=== PATIENT | male | born 2005 | race Two or more races ===

== ENCOUNTER 2024-08-23 03:50 | Observation (INO) ==
[2024-08-23] MEDS ORDERED: HYDROmorphone INJ 0.5 MG/0.5 ML SYR IV PRN ×2 (04:24)
--- NOTE | 2024-08-23 04:32 | History & Physical Report ---
Date of Service August 23, 2024 Assessment & Plan (1) Acute appendicitis: Plan: Patient was transferred from [facility] with concerns of acute appendicitis. He was seen and evaluated early this morning at bedside and does have clinical exam findings consistent with appendicitis. Treatment options were discussed with the patient and at this time he is agreeable to undergo surgical intervention. Patient's case was discussed with attending surgeon, Dr. Ballesteros. Patient tentatively planned for laparoscopic appendectomy later today. For now recommend the following: - Keep n.p.o., IV fluid hydration, pain medication and antiemetics as needed - Preoperative antibiotics ordered - Discussed with both the patient, and his parents who are at bedside, postoperative instructions. -Plan for possible discharge post-operatively later today as above. discussed risks/options ( bleeding/infection/blood clots/injury to another organ etc....). also spoke to his mom. questions answered. will proceed today with lap appendectomy. Admission and Anticipated Discharge Date Admission Date: August 23, 2024 History of Present Illness Chief Complaint: Abdominal pain Primary Care Provider: NO PCP Patient is a 18-year-old male presented to outside facility late last evening due to complaints of acute onset of abdominal pain. Patient states that he was feeling his normal self, however around 7 PM last evening he started with lower abdominal pain with associated nausea, vomiting, and a low-grade fever. Patient states that his pain started in his mid abdomen and has now migrated over to his right lower quadrant. The patient was worked up at the outside hospital and was found to have a leukocytosis of [address] findings concerning for acute appendicitis. Patient's case was discussed with attending surgeon, Dr. Ballesteros, and the patient was transferred to our facility and was admitted to the surgical service. The patient was seen and evaluated early this morning at bedside. He is resting comfortably in bed, vital signs stable, and is nontoxic-appearing. The patient is accompanied by his parents who are also at bedside. Patient's mother does note he had an inguinal hernia repaired as a infant, but otherwise has never had any additional abdominal surgeries. Patient does take a PPI for GERD and admits to occasionally smoking marijuana, otherwise he denies any other medical issues. Allergies Allergy/AdvReac Type Severity Reaction Status Date / Time codeine Allergy Rash Verified 08/23/24 04:53 Penicillins Allergy Rash Verified 08/23/24 04:53 Home Medications Medication Instructions Recorded Confirmed Type omeprazole 20 mg capsule,delayed 20 mg PO DAILY 08/23/24 08/23/24 History release Past Med/Surg History Problem List Acute appendicitis Social History Smoking Status: Never smoker Hx Alcohol Use: Yes Alcohol type: beer Hx Substance Use: Yes Last Used Substance: Days (ago) Preferred Language: Estonian Communication Ability: Effective Director Operations Required: No Beliefs That Will Affect Care: None Current Living Situation: Alone Other Information That Helps Us Care for You: No Feels Safe at Home: Yes Safety Concerns: Feels Safe At This Time Assistive Devices: Glasses Review of Systems Constitutional: + fever; no chills, no body aches and no weakness Respiratory: no cough, no chest congestion and no dyspnea Cardiovascular: no chest pain, no palpitations and no syncope Gastrointestinal: + abdominal pain, + nausea and + vomitin g Genitourinary: no dysuria, no difficulty urinating or no flank pain Physical Exam Constitutional: WD/WN, vitals as above Respiratory: normal respiratory effort, lungs clear to auscultation Cardiovascular: RRR, no murmur, no edema Gastrointestinal (Abdomen): Abdomen soft, nondistended, +TTP in the RLQ with +McBurney's No rebound, guarding or signs of peritonitis Skin: no rashes, warm and dry Psychiatric: A+Ox3, euthymic affect Results & Data Results & Data Diagnostic Findings CT imaging from [facility] with concerns of acute appendicitis Code Status & VTE Plan VTE Prophylaxis Plan VTE Prophylaxis will be ordered: Yes PG Care Time/CCT Total # of Minutes Spent Total Time Spent with Patient: Total time spent is greater than 50% in coordination of care (as documented) at patient's floor/unit and/or counseling patient: [place] [address] INT INP/OBS CARE 1/40MIN Patient Type New Medical Decision Making Straight Forward Diagnoses Acute appendicitis K35.80
[2024-08-23] MEDS: SODIUM CHLORIDE 0.9% 1,000 ML IV SCH (05:06)
[2024-08-23] MEDS: KETOROLAC TROMETHAMINE 15 MG/ML VIAL IV PRN (05:08)
[2024-08-23] MEDS: ACETAMINOPHEN 1,000 MG/100 ML VIAL IV SCH (05:08)
[2024-08-23] MEDS: metroNIDAZOLE 500 MG/100 ML BAG IV SCH (05:14)
[2024-08-23] MEDS: CIPROFLOXACIN / D5W 400 MG/200 ML BAG IV SCH (06:19)
[2024-08-23 06:41] LABS: Hematocrit (blood only) 39.4 % (42.0-52.0); Hemoglobin 13.8 g/dl (14.0-18.0); Immature Granulocytes # (auto) 0.04 K/uL (0.01-0.20); Immature Granulocytes % (auto) 0.3 %; Mean Corpuscular Hemoglobin 30.1 pg (25.0-34.0); Mean Corpuscular Volume 85.8 fL (80.0-100.0); Platelet Count 170 K/uL (130-400); RDW Standard Deviation 36.6 fL (36.4-46.3); Red Blood Count 4.59 M/uL (4.70-6.10); White Blood Count 13.84 K/ul (4.8-10.8)
[2024-08-23 06:57] LABS: Anion Gap 5.0 (3-11); Blood Urea Nitrogen 18.0 mg/dl (6-23); Calcium 8.7 mg/dl (8.6-10.3); Carbon Dioxide 29.0 mmol/L (21-32); Chloride 105.0 mmol/L (98-107); Creatinine Clr Calc Pharmacy 175.6 ml/min; Glucose 93.0 mg/dl (70-99(Fasting)); Potassium 3.7 mmol/L (3.5-5.1); Sodium 139.0 mmol/L (136-145)
[2024-08-23] MEDS ORDERED: PIPERACILLIN/TAZOBACTAM 4.5 GM/100 ML BAG IV SCH (08:00)
--- NOTE | 2024-08-23 08:11 | Anesthesiology Consultation ---
Date of Service August 23, 2024 Assessment & Plan Chart Review Chart Review: Acceptable Risk for Surgery and Patient NOT seen in Pre Admission Testing Consults Requested none ASA [id number] Proposed Anesthesia Anesthesia Type: General History Surgery Operation Date: 08/23/24 12:30 Proposed Procedures p Laparoscopic Appendectomy - Alex Ballesteros, Height/Weight Height: 5 ft 7 in Weight: 130 kg Allergies Allergy/AdvReac Type Severity Reaction Status Date / Time codeine Allergy Rash Verified 08/23/24 04:53 Penicillins Allergy Rash Verified 08/23/24 04:53 Medications Home Medications Medication Instructions Recorded Confirmed Last Taken omeprazole 20 mg capsule,delayed 20 mg PO DAILY 08/23/24 08/23/24 Unknown release Active Medications Generic Name Dose Route Start Last Admin Trade Name Freq PRN Reason Stop Dose Admin Sodium Chloride 1,000 mls @ 75 mls/hr 08/23/24 04:30 08/23/24 05:15 Nss IV 08/26/24 04:29 0 mls/hr .[id number] ALEX Infusion Acetaminophen 1,000 mg in 100 mls @ 400 mls/hr 08/23/24 05:00 08/23/24 05:33 Ofirmev IV 08/26/24 04:59 Infused Q8 ALEX Infusion Ciprofloxacin 400 mg in 200 mls @ 100 mls/hr 08/23/24 06:00 08/23/24 06:19 Cipro / D5w IV 09/02/24 05:59 100 mls/hr Q12H ALEX Administration Metronidazole 500 mg in 100 mls @ 100 mls/hr 08/23/24 05:15 08/23/24 06:20 Flagyl IV 09/02/24 05:14 Infused Q8 ALEX Infusion Ketorolac Tromethamine 15 mg 08/23/24 04:49 08/23/24 05:08 Ketorolac Tromethamine 15 Mg/Ml Vial IV 08/28/24 04:48 15 mg Q6H PRN Administration Pain Past Medical History GERD Morbid Obesity + marijuana smoker Exercise / Class Metabolic Activity II 4-5 Yardwork/Stairs/Walk up hill Past Anesthesia History No Hx of Anesthesia Complications and No Family Hx of Anesthesia Complications History of PONV No Hx of PONV and No Hx of Motion Sickness Social History Smoking Status: Never smoker Hx Alcohol Use: Yes Alcohol type: beer alcohol intake frequency: a few times a month Hx Substance Use: Yes substance use type: marijuana Last Used Substance: Days (ago) Physical Exam Vital Signs Last Vital Signs Temp 36.6 C 08/23/24 07:12 Pulse 57 L 08/23/24 07:12 Resp 16 08/23/24 07:12 BP 100/62 08/23/24 07:12 Pulse Ox 96 08/23/24 07:12 O2 Del Method Room Air 08/23/24 07:12 Testing Laboratory Results 08/23/24 05:56 08/23/24 05:56
[2024-08-23] MEDS ORDERED: PROMETHAZINE HCL 6.25 MG in SODIUM CHLORIDE 0.9% 50 ML IV PRN (10:38)
[2024-08-23] MEDS ORDERED: FLUMAZENIL 0.1 MG/1 ML 10 ML VIAL IV PRN (10:38)
[2024-08-23] MEDS ORDERED: NALOXONE HCL 0.4 MG/1 ML VIAL/CARP IV PRN (10:38)
[2024-08-23] MEDS ORDERED: ATROPINE SULFATE 0.1 MG/ML 10ML SYR IV PRN (10:38)
[2024-08-23] MEDS ORDERED: PROPOFOL IV EMULSION 10 MG/ML 20 ML VIAL IV ONE (10:48)
[2024-08-23] MEDS ORDERED: MIDAZOLAM HCL 1 MG/ML 2ML VIAL ONE (10:50)
[2024-08-23] MEDS ORDERED: CISATRACURIUM BESYLATE IV SOLN 2 MG/ML 10 ML VIAL IV ONE (10:52)
[2024-08-23] MEDS ORDERED: DEXAMETHASONE SOD INJ 4 MG/ML VIAL ONE (11:27)
[2024-08-23] MEDS ORDERED: ONDANSETRON INJ 2 MG/ML 2 ML VIAL ONE (11:27)
[2024-08-23] MEDS ORDERED: GLYCOPYRROLATE 0.2 MG/ML VIAL ONE (11:31)
[2024-08-23] MEDS ORDERED: NEOSTIGMINE METHYLSULFATE 1 MG/ML 10ML VIAL ONE (11:31)
[2024-08-23] MEDS: BUPIVACAINE/EPINEPHRINE 0.5% MPF 1:200,000 30 ML VIAL ONE (11:35)
[2024-08-23] MEDS ORDERED: KETOROLAC 30 MG/ML VIAL ONE (11:38)
[2024-08-23] MEDS ORDERED: LIDOCAINE 2% 2 ML VIAL/AMP(20MG/ML) INFIL ONE (11:46)
--- NOTE | 2024-08-23 12:07 | Operative Report ---
PG Post Operative Report Pre & Post Diagnosis Operation Date: 08/23/24 12:30 Pre-Op Diagnosis: Appendicitis Post-Op Diagnosis: Appendicitis I identified the patient and participated in the time-out.: Yes Procedure Operation Date: 08/23/24 12:30 Actual Procedures p Laparoscopic Appendectomy(Not Applicable) - Alex Ballesteros DO Surgeon Alex Ballesteros DO Paste Mixing Supervisor saurabh Perez Estimated Blood Loss 5 Findings Consistent with Post-Op Diagnosis Specimens appendix Description of Procedure After informed consent was obtained the patient was taken to the operating room and placed in supine position. After successful intubation the abdomen was sterilely prepped and draped in usual fashion. I began by making a periumbilical incision with an 11 blade scalpel and carried this down through the soft tissue using electrocautery. The anterior rectus fascia was opened using electrocautery and 2 #0 Vicryl stay sutures were placed. The peritoneum was elevated using hemostats and incised under direct vision using a Metzenbaum scissor. A finger sweep was performed. A 12 mm Casarez trocar was placed and the abdomen was insufflated to 18 mmHg. A laparoscope was inserted and the abdomen was examined in 360. A suprapubic 5 mm port and a left lower quadrant 12 mm port were placed under direct vision. The patient was air planed to the left as well as placed in a slight Trendelenburg position. We began by looking in the right lower quadrant. We were able to readily identify the appendix and it was grossly inflamed. It had not perforated. There is a small amount of purulent fluid in the right lower quadrant and the pelvis. We immediately irrigated and suctioned this out. I was able to use primarily blunt dissection to pull the appendix away from the right lower quadrant sidewall. Next I used a [place] dissector to create a small window in the mesentery of the appendix. I was then able to use a EDUARDO brown cartridge stapler to transect first the mesentery of the appendix followed by the appendix itself at its base with the cecum. It was then placed into an Endo Catch bag and removed from the camera port site. We thoroughly irrigated the right lower quadrant as well as the pelvis. There was a small amount of oozing from the mesenteric staple line. I therefore used a clip hydrometer finisher to control this with a single clip. Following this, there was adequate hemostasis. I ran the small bowel backwards from the terminal ileum for about 6 feet all of which was normal. All the peritoneal surfaces were normal. Small/ large bowel, liver, stomach etc. all appeared grossly normal. We did a final irrigation and then removed all the trochars and desufflated the abdomen. The fascia of the camera port as well as the left lower quadrant were closed using 0 Vicryl in [id number] fashion. Wounds were all irrigated and closed using 4-0 Monocryl. Marcaine was injected around them for postoperative analgesia and skin glue used as a dressing. The patient was awakened extubated and transferred to recovery in stable condition. My physician's assistant kitchen manager was present through the entire case. She assisted with prepping the patient and helped with exposure for port placement, helped run the camera and helped with fascial/wound closure at the end of the procedure as well as dressing placement. I attest to the content of the Intraoperative Record and any orders documented therein. Any exceptions are noted below. I attest to the content of the Intraoperative Record and any orders documented therein. Any exceptions are noted below.
[2024-08-23] MEDS: ONDANSETRON INJ 2 MG/ML 2 ML VIAL IV PRN (12:17)
--- NOTE | 2024-08-23 12:35 | Anesthesiology Progress Note ---
Date of Service August 23, 2024 Anesthesia Post Procedure Vital Signs Vital Signs: Temp Pulse Pulse Resp BP Pulse Ox O2 Del Method 08/23/24 12:31 36.7 C 83 22 109/73 97 Room Air 08/23/24 12:20 66 13 129/83 100 Oxymask 08/23/24 12:10 36.3 C L 84 22 135/86 98 Oxymask 08/23/24 07:12 36.6 C 57 L 16 100/62 96 Room Air 08/23/24 04:20 36.9 C 65 16 129/77 97 Room Air O2 Flow Rate 08/23/24 12:31 08/23/24 12:20 5 08/23/24 12:10 10 08/23/24 07:12 08/23/24 04:20 Pain Intensity Lower Abdomen: Pain Intensity: 5 Transfer of Care Handoff Completed per policy Notes Mental Status: alert / awake / arousable Patient Amnestic to Procedure: Yes Nausea / Vomiting: adequately controlled Pain: adequately controlled Airway Patency, RR, SpO2: stable & adequate BP & HR: stable & adequate Hydration State: stable & adequate Anesthetic Complications: no major complications apparent
[2024-08-23] MEDS: HYDROmorphone INJ 0.5 MG/0.5 ML SYR IV PRN (13:11)
[2024-08-23] MEDS: KETOROLAC 30 MG/ML VIAL IV ONE (17:41)
[2024-08-23 19:04] VITALS: RESP 16
[2024-08-23] MEDS: diphenhydrAMINE 50 MG/ML VIAL IV STA (22:34)
[2024-08-23 22:46] VITALS: O2SAT 95
--- NOTE | 2024-08-24 06:19 | Surgery Progress Note ---
Date of Service August 24, 2024 Assessment & Plan (1) Acute appendicitis: Plan: Patient is POD #1 s/p laparoscopic appendectomy by Dr. Ballesteros -Doing well from a surgical perspective -Pain controlled -Tolerating diet -Anticipate patient to be discharged this morning -Post-operative instructions reviewed with patient, he will follow up in our outpatient clinic in 2 weeks for his post-op visit doing well. ok for d/c. Admission and Anticipated Discharge Date Admission Date: August 23, 2024 Subjective Patient seen and evaluated early this morning, states he feels much better Pain controlled Tolerating diet without worsening abdominal pain. Denies N/V VSS and afebrile Physical Exam Constitutional: WD/WN, vitals as above Respiratory: normal respiratory effort, lungs clear to auscultation Cardiovascular: Rate/Rhythm: regular rate Gastrointestinal (Abdomen): Soft, nondistended, +appropriate TTP over surgical sites. Incisions are c/d/i, Dermabond in place, no overlying signs of infection Skin: no rashes, warm and dry Psychiatric: A+Ox3, euthymic affect Results & Data Vital Signs (Past 12 Hours) Vital Signs Temp Pulse Resp BP Pulse Ox O2 Del Method 08/24/24 03:17 36.8 C 82 16 97/52 L 95 Room Air 08/23/24 22:46 36.4 C L 78 16 111/67 95 Room Air 08/23/24 19:03 36.8 C 74 16 112/69 96 Room Air PG Care Time/CCT Total # of Minutes Spent Total Time Spent with Patient: Total time spent is greater than 50% in coordination of care (as documented) at patient's floor/unit and/or counseling patient: C[place] [address] Post Operative Follow-Up Patient Type Established Medical Decision Making Straight Forward Diagnoses Acute appendicitis K35.80
[2024-08-24 07:05] LABS: Hematocrit (blood only) 40.5 % (42.0-52.0); Hemoglobin 14.1 g/dl (14.0-18.0); Immature Granulocytes # (auto) 0.04 K/uL (0.01-0.20); Immature Granulocytes % (auto) 0.3 %; Mean Corpuscular Hemoglobin 29.9 pg (25.0-34.0); Mean Corpuscular Volume 86.0 fL (80.0-100.0); Platelet Count 187 K/uL (130-400); RDW Standard Deviation 37.1 fL (36.4-46.3); Red Blood Count 4.71 M/uL (4.70-6.10); White Blood Count 11.53 K/ul (4.8-10.8)
[2024-08-24 07:17] LABS: Anion Gap 7.0 (3-11); Blood Urea Nitrogen 13.0 mg/dl (6-23); Calcium 8.9 mg/dl (8.6-10.3); Carbon Dioxide 28.0 mmol/L (21-32); Chloride 105.0 mmol/L (98-107); Creatinine Clr Calc Pharmacy 109.2 ml/min; Glucose 95.0 mg/dl (70-99(Fasting)); Potassium 3.8 mmol/L (3.5-5.1); Sodium 140.0 mmol/L (136-145)
[2024-08-24 07:45] VITALS: BP 116/73; PULSE 75; TEMP 98.1
== END 2024-08-24 11:00 | disposition home or self-care (01) ==
LOC: INTOOBSV 04:12 → 3N 04:12